=== PATIENT | female | born 1985 | race Caucasian/White ===

== ENCOUNTER 2021-10-23 13:16 | Outpatient (REF) | payer BC, SELFPAY ==
[2021-10-23 18:37] LABS: Abs Immature Grans 0.01 10^3/uL (0.0-0.06); Absolute Basophil Count 0.02 10^3/uL (0.0-0.2); Absolute Eosinophil Count 0.09 10^3/uL (0.0-0.7); Absolute Lymphocyte Count 1.59 10^3/uL (1.2-3.4); Absolute Monocyte Count 0.32 10^3/uL (0.1-0.8); Basophils % 0.5; Eosinophils % 2.2; HCT 38.9 % (36.0-46.0); Immature Grans % 0.2; Lymphocytes % 39.5; MCH 28.3 pg (27.0-33.0); MCHC 33.4 % (32.0-36.0); MCV 85 fL (80-95); Monocytes % 7.9; Neutrophils % 49.7; Platelet Count 137 10^3/uL (130-400); RDW 13.2 % (11.7-14.6); WBC 4.03 10^3/uL (4.4-10.8)
[2021-10-23 19:35] LABS: Diff Comment PLT Morph Reviewed; RBC Morphology Normal
== END 2021-10-23 13:17 | disposition home or self-care (01) ==
LOC: LBN 13:16
PROVIDERS: Visit Provider Nurse Practitioner Family
DX: R21 Rash and other nonspecific skin eruption (principal)
CPT/HCPCS: 85025